=== PATIENT | female | born 1970 | race Two or more races ===

== ENCOUNTER 2017-02-14 07:41 | Emergency (ER) | payer OTHER ==
[2017-02-14 07:58] VITALS: RESP 16; TEMP 98.4
--- NOTE | 2017-02-14 08:05 | EDPHY ---
H & P Time Seen by Provider: 02/14/17 07:54 HPI/ROS: Chief complaint. Knee injury HPI. 46-year-old female presents emergency department with right knee injury that occurred yesterday. She was in an exercise class and moving sideways crossing 1 leg over the other at. She got tangled up and fell striking her right knee on the floor. She is unsure how it twisted. She has diffuse pain to the right knee. She has minor pain to the right ankle. No previous knee injury or surgery. She is able to walk but it hurts to walk. No other injuries ROS Constitutional. no fever/chills, no weakness Eyes. no problems with vision ENT. no sore throat, no nasal drainage Cardiovascular. no chest pain Respiratory. no shortness of breath, no cough Abdominal. no abdominal pain, no nausea/vomiting, no diarrhea . no problems urinating MS. right knee pain Skin. no rash Lymph. no swollen glands Neuro. no headache, no dizziness, no difficulty walking or with speech Past Medical/Surgical History: Thyroidectomy for thyroid cancer. Umbilical hernia, hysterectomy Social History: , nonsmoker, no alcohol Smoking Status: Never smoked Physical Exam: General Appearance: Alert pleasant well-developed female mild distress vital signs stable Eyes: Pupils equal and round no pallor or injection. ENT, Mouth: Mucous membranes are moist. Respiratory: There are no retractions, lungs are clear to auscultation. Cardiovascular: Regular rate and rhythm. Gastrointestinal: Abdomen is soft and nontender, no masses, bowel sounds normal. Neurological: Awake and alert, sensory and motor exams grossly normal. Skin: Warm and dry, no rashes. Musculoskeletal: Neck is supple nontender. Extremities right knee without obvious swelling. There is tenderness to the medial and lateral joint lines with palpation. Mild tenderness over the patella. No instability to stress. Distal motor vascular sensitivity to be intact Psychiatric: Patient is oriented X 3, there is no agitation. Constitutional: Initial Vital Signs Temperature (C) 36.9 C 02/14/17 07:55 Heart Rate 81 02/14/17 07:55 Respiratory Rate 16 02/14/17 07:55 Blood Pressure 150/108 H 02/14/17 07:55 O2 Sat (%) 97 02/14/17 07:55 O2 Delivery Mode Room Air Allergies/Adverse Reactions: clindamycin Allergy (Severe, Verified 02/14/17 07:53) Wheezing corn [[place]] Allergy (Severe, Verified 02/14/17 07:53) Home Medications: Medication Instructions Recorded Compounded Asprin 81mg 81 mg PO DAILY 06/01/15 Compounded [id number] 800 mg PO Q8H PRN 06/01/15 Compounded Thyroid 200mg 200 mg PO DAILY 06/01/15 Compounded Hydrocortisone 02/14/17 Hydrocodone/APAP 5/325 [[place] 1 each PO Q4-6PRN PRN #10 tab 02/14/17 5/325 (*)] Medical Decision Making - Diagnostics Imaging Results: X-ray right knee reviewed by me and reveals no evidence for fracture, dislocation Procedures: Patient is placed in a right knee immobilizer. Post immobilizer placement inspected by me and shows good anatomic position and distal motor vascular sensitivity to be intact ED Course/Re-evaluation: Re-evaluation 8:40 a.m.. Patient is stable. The patient and I discussed imaging study results, treatment plan, criteria for return and importance of follow-up and further evaluation. She expresses understanding and agreement Differential Diagnosis: I considered fracture and dislocation. There is no evidence for ligamental injury. She has tenderness to the medial and lateral joint lines which may indicate meniscal injury. Symptoms are consistent with sprain Departure - Departure Disposition: Home, Routine, Self-Care Clinical Impression: Right knee sprain Qualifiers: Encounter type: initial encounter Involved ligament of knee: unspecified ligament Qualified Code(s): S83.91XA - Sprain of unspecified site of right knee , initial encounter Condition: Good Instructions: Knee Sprain (ED), Knee Immobilizer (ED) Additional Instructions: Ice to knee next 24 hours. Elevate as much as possible. Knee immobilizer on for the next 3-4 days. Ibuprofen 600 mg every 6 hours, hydrocodone code own at in addition as needed for pain. Return for worsening symptoms. For continued knee pain follow up with regular healthcare provider and he really [place]. I will also give you the name of orthopedist for follow-up. Referrals: Doctor Not,On Staff, [Primary Care Provider] - As per Instructions Nette Schofield MD [Medical Doctor] - As per Instructions BUTCH SIMENTAL [Non Staff Provider ()] - 3-4 days, if not improved Prescriptions: Hydrocodone/APAP 5/325 [[place] 5/325 (*)] 1 each PO Q4-6PRN PRN #10 tab PRN Reason: Pain, Moderate
[2017-02-14 09:07] VITALS: BP 155/103; PULSE 77; O2SAT 94
== END 2017-02-14 09:04 | disposition home or self-care (01) ==
LOC: CED 07:41
DX: S83.91XA Sprain of unspecified site of right knee, initial encounter (principal); Z79.82 Long term (current) use of aspirin; Z85.850 Personal history of malignant neoplasm of thyroid; W18.09XA Striking against other object with subsequent fall, initial encounter; Y99.8 Other external cause status; Y93.B9 Activity, other involving muscle strengthening exercises
CPT/HCPCS: 73564-PO; L1830